=== PATIENT | male | born 1960 | race Caucasian/White ===

== ENCOUNTER 2023-09-17 13:48 | Emergency (ER) | payer OTHER ==
[~2023-09-17] VITALS: Ht 180.3 cm; Wt 90.7 kg
[2023-09-17] MEDS ORDERED: methylPREDNISolone SOD SUCC 125 MG/2ML VIAL ONE (15:04)
[2023-09-17] MEDS: methylPREDNISolone SOD SUCC 125 MG/2ML VIAL IV ONE (15:04)
[2023-09-17] MEDS: ALBUTEROL FS 2.5 MG/3 ML VIAL.NEB CONTNEB ONE (15:16)
[2023-09-17] MEDS: IPRATROPIUM NEB FS 0.5 MG/2.5 ML AMPUL.NEB NEB ONE (15:16)
[2023-09-17 15:17] VITALS: O2SAT 99
[2023-09-17] MEDS ORDERED: IPRATROPIUM NEB FS 0.5 MG/2.5 ML AMPUL.NEB ONE (15:18)
[2023-09-17] MEDS ORDERED: ALBUTEROL FS 2.5 MG/3 ML VIAL.NEB ONE (15:18)
[2023-09-17 15:31] LABS: BASOPHILS # (AUTO) 0.1 K/uL (0.0-0.2); BASOPHILS % (AUTO) 1.3 % (0.0-2.0); HEMATOCRIT 44 % (39-51); HEMOGLOBIN 14.7 g/dL (13.5-17.5); LYMPHOCYTES % (AUTO) 20.9 % (20.0-44.0); MEAN CORPUSCULAR HEMOGLOBIN 31 PG (26.0-33.0); MEAN CORPUSCULAR HGB CONC 34 g/dl (31.0-36.0); MEAN CORPUSCULAR VOLUME 93 fL (80-96); MONOCYTES # (AUTO) 0.3 K/uL (0.1-1.30); MONOCYTES % (AUTO) 7.1 % (2.0-12.0); NEUTROPHILS # (AUTO) 3.2 K/uL (1.8-8.9); NEUTROPHILS % (AUTO) 69.7 % (43.0-81.0); PLATELET COUNT (AUTO) 260 K/uL (150-450); RED BLOOD CELL COUNT(AUTO) 4.74 MIL/uL (4.5-6.0); RED CELL DISTRIBUTION WIDTH 15.6 % (11.5-15.0); WHITE BLOOD COUNT (AUTO) 4.7 K/uL (4.3-11.0)
[2023-09-17 15:38] VITALS: O2SAT 97
[2023-09-17 15:51] LABS: D-DIMER 0.68 mg/L(FEU (0.17-0.50); INR 1.1 (0.91-1.10); PARTIAL THROMBOPLASTIN TIME 29.8 SEC (24.3-34.3); PROTHROMBIN TIME 11.6 SECS (9.2-11.1)
[2023-09-17 15:55] LABS: ALANINE AMINOTRANSFERASE 36 U/L (12-78); ALBUMIN 3.5 g/dL (3.4-5.0); ALKALINE PHOSPHATASE 120 U/L (46-116); ASPARTATE AMINOTRANSFERASE 28 U/L (15-37); BILIRUBIN,DIRECT 0.3 mg/dL (0.0-0.2); BILIRUBIN,TOTAL 1.8 mg/dL (0.2-1.0); CALCIUM, SERUM 9.4 mg/dL (8.5-10.1); CARBON DIOXIDE 24 mmol/L (21-32); CHLORIDE 103 mmol/L (98-107); CREATININE 1.2 mg/dL (0.6-1.3); GLUCOSE 97 mg/dL (74-106); NT-PRO BNP 5447 pg/mL (0-125); POTASSIUM 4.4 mmol/L (3.5-5.1); SODIUM SERUM 135 mmol/L (136-145); TOTAL PROTEIN, SERUM 7.7 g/dL (6.4-8.2); UREA NITROGEN, BLOOD 26 mg/dL (7-18)
[2023-09-17] MEDS ORDERED: CT SWABBABLE VALVE TRANS SET 1 EA INFUS.SET MC ONE (16:15)
[2023-09-17] MEDS ORDERED: IOHEXOL-350 100 ML VIAL IV ONE (16:15)
[2023-09-17] MEDS: FUROSEMIDE 20 MG/2 ML VIAL IV ONE (16:35)
[2023-09-17 21:00] VITALS: BP 159/82; TEMP 98; O2SAT 97
== END 2023-09-17 21:20 | disposition left against medical advice (07) ==
LOC: ER 13:48
DX: I50.9 Heart failure, unspecified (principal); R06.00 Dyspnea, unspecified; Z88.0 Allergy status to penicillin
CPT/HCPCS: 99285; 93307; 96374; 71275; 71045; 96375; 93005 ×2; 85025; 80048; 80076; 85378; 36415; 84484 ×2; 85730; 83880; 94799; 94640; J1940; J2930; Q9967

== ENCOUNTER 2025-06-17 01:29 | Emergency (ER) | payer MEDICAID, OTHER ==
[~2025-06-17] VITALS: Ht 180.3 cm; Wt 89.8 kg
[2025-06-17 02:48] VITALS: TEMP 97.9
[2025-06-17] MEDS ORDERED: CLOPIDOGREL BISULFATE 75 MG TABLET ONE (03:17)
[2025-06-17] MEDS: CLOPIDOGREL BISULFATE 75 MG TABLET PO ONE (03:31)
[2025-06-17 03:33] LABS: PLATELET COUNT (AUTO) 266 K/uL (150-450); RED BLOOD CELL COUNT(AUTO) 5.14 MIL/uL (4.5-6.0); RED CELL DISTRIBUTION WIDTH 14.0 % (11.5-15.0); WHITE BLOOD COUNT (AUTO) 6.6 K/uL (4.3-11.0)
[2025-06-17 03:42] LABS: CALCIUM, SERUM 8.5 mg/dL (8.5-10.1); CREATININE 1.2 mg/dL (0.6-1.3); SODIUM SERUM 139.0 mmol/L (136-145); UREA NITROGEN, BLOOD 24.0 mg/dL (7-18)
[2025-06-17 03:47] LABS: ASPARTATE AMINOTRANSFERASE 23.0 U/L (15-37); TOTAL PROTEIN, SERUM 7.2 g/dL (6.4-8.2)
[2025-06-17] MEDS ORDERED: ZOLP5TAB2 PO (04:50)
[2025-06-17] MEDS ORDERED: CLOP75TA15 PO (04:50)
[2025-06-17 05:00] VITALS: BP 135/61; O2SAT 95
== END 2025-06-17 05:22 | disposition left against medical advice (07) ==
LOC: ER 01:33
DX: I44.0 Atrioventricular block, first degree (principal); Z88.0 Allergy status to penicillin; Z79.02 Long term (current) use of antithrombotics/antiplatelets; G47.00 Insomnia, unspecified; Z76.0 Encounter for issue of repeat prescription
CPT/HCPCS: 36415; 71045-TC; 80053-TC; 84484-TC; 85025-TC